=== PATIENT | female | born 1980 | race Caucasian/White ===

== ENCOUNTER 2018-12-21 15:50 | Emergency (ER) | payer BC, MEDICAID ==
[~2018-12-21] VITALS: Ht 167.6 cm; Wt 78.9 kg
[2018-12-21 19:09] VITALS: BP 128/80
[2018-12-21] MEDS ORDERED: BACLOFEN 10 MG TAB PO ONE (19:15)
[2018-12-21] MEDS ORDERED: ACETAMINOPHEN/CODEINE#3 (300/30mg) TAB PO ONE (19:15)
[2018-12-21] MEDS ORDERED: DexAMETHasone SOD PHOS 10MG/1ML VIAL INJ IM ONE (19:15)
[2018-12-21] MEDS ORDERED: cefTRIAXone SOD 1,000 MG VL IM ONE (19:15)
== END 2018-12-21 20:35 | disposition home or self-care (01) ==
LOC: ER 15:50 → EDBD 15:50 → ER 20:35
DX: J06.9 Acute upper respiratory infection, unspecified (principal); M62.838 Other muscle spasm
CPT/HCPCS: 96372; 99283; J0696; J1100